=== PATIENT | male | born 1950 | race Hispanic/Latino ===

== ENCOUNTER → 2017-08-08 | Outpatient (CLI) | payer MEDICARE ==
[~2017-08-08] MED LIST: CARVEDILOL25 MG PO; FINASTERIDE5 MG PO; GLIPIZIDE ER2.5 MG PO; JANUVIA100 MG PO; LOSARTAN POTASS25 MG PO; METFORMIN HCL500 MG PO; SIMVASTATIN40 MG PO
--- NOTE | 2017-08-08 11:37 | Diagnostic Imaging Report ---
PROCEDURE:CT CHEST WITHOUT CONTRAST COMPARISON:X-ray 07/10/17. INDICATIONS:ABNORMAL CHEST X-RAY TECHNIQUE: Axial CT images of the chest were obtained without intravenous contrast. Coronal and sagittal reformations were made available for review. RADIATION DOSE: Total DLP: 472.1 mGy*cm Estimated effective dose: (DLP x 0.014 x size factor) mSv FINDINGS: Lungs: Right lung: Diffusely hyperinflated with mild apical pleural-parenchymal thickening. There is mild bronchial wall thickening in the lower lobe. No osei consolidation. Mild dependent groundglass attenuation suggestive of microatelectasis or resolving infiltrate. The nodule in the midlung field on x-ray is visible on banking representative image but has no correlate on cross-sectional images. The pulmonary arteries are mildly prominent, particularly in the lower lobe. Left lung: Diffusely hyperinflated with mild apical pleural-parenchymal thickening. There is diffuse bronchial wall thickening in the lingula and lower lobe with patchy groundglass airspace opacities suggestive of subsegmental atelectasis or potential infiltrate. The lobar pulmonary arteries are mildly prominent. No mass. Airways: There is moderate tracheobronchomalacia. No intraluminal mass or mucus. Pleura:No pleural effusion or pleural-based mass. There is a small fat-containing right Bochdalek hernia. Heart \T\ Mediastinum:The heart is enlarged with coronary artery calcifications. A stent is located in the LAD coronary artery. Pacemaker battery pack is located in the left chest wall. Leads terminate in the right atrium and right ventricle. No pericardial effusion. The ascending aorta measures 4.0 x 4.0 cm. The descending aorta measures 2.6 x 2.7 cm. The main pulmonary artery measures 3.0 cm. The esophagus is normal. Lymph nodes: No enlarged axillary, supraclavicular, mediastinal, or hilar lymph nodes. Thyroid/base of neck: No evidence of mass in the visualized portions. Upper abdomen:There is diffuse fatty atrophy of the pancreas. The visualized portions of the liver, spleen, gallbladder, adrenal glands, and kidneys are unremarkable. Musculoskeletal: There is a bone island in the body of T3. Minimal endplate degenerative changes are present consistent with age. No destructive lesions. Soft tissues: Mild right gynecomastia. CONCLUSION: 1. Pulmonary hyperinflation consistent with COPD. Moderate tracheobronchomalacia. 2. Bibasilar bronchial wall thickening suggestive of bronchitis. This may be acute or chronic. Patchy airspace opacities in the lower lobes are suggestive of atelectasis or resolving infiltrate. 3. The nodule in the left midlung field on x-ray has no CT correlate and is likely a vessel on end. 4. Cardiomegaly and aortic ectasia. Mildly enlarged pulmonary arteries suggestive of pulmonary artery hypertension. Dictated by: Misael Cobb M.D. on 08/08/2017 at 11:45 Electronically approved by: Misael Cobb M.D. on 08/08/2017 at 11:45
== END ==
LOC: CT 09:33
PROVIDERS: ATTEND Family Medicine
DX: R91.8 Other nonspecific abnormal finding of lung field (principal)
CPT/HCPCS: 71250

== ENCOUNTER → 2018-07-30 | Outpatient (CLI) | payer MEDICARE ==
[~2018-07-30] MED LIST changes: +CRESTOR20 MG PO; +FUROSEMIDE40 MG PO
--- OUTSIDE RECORDS SUMMARY | 2018-07-30 08:14 | XMS REPORT ---
Author Author [facility] Address Unknown Phone Unavailable Care Team Providers Care Ocean Biologist Name Role Phone JONNA RAE Unavailable Unavailable Problems This patient has no known problems. Allergies, Adverse Reactions, Alerts This patient has no known allergies or adverse reactions. Medications This patient has no known medications. Results Test Description Test Time Test Comments Text Results Atomic Results Result Comments CT CHEST WO [place] [address] Patient Name: ERICA MATA MR #: [id number] : 1950 Age/Sex: 67/M Req #: [id number] Adm Physician: Ordered by: KYRA CARLSON, JONNA Beckford MD Report #: [id number] Location: CT Room/Bed: Procedure: [id number] CT/CT CHEST WO Exam Date: 08/08/17 Exam Time: 1005 REPORT STATUS: Signed PROCEDURE: CT CHEST WITHOUT CONTRAST COMPARISON: X-ray 07/10/17. INDICATIONS: ABNORMAL CHEST X-RAY TECHNIQUE: Axial CT images of the chest were obtained without intravenous contrast. Coronal and sagittal reformations were made available for review. RADIATION DOSE: Total DLP: 472.1 mGy*cm Estimated effective dose: (DLP x 0.014 x size factor) mSv FINDINGS: Lungs: Right lung: Diffusely hyperinflated with mild apical pleural-parenchymal thickening. There is mild bronchial wall thickening in the lower lobe. No osei consolidation. Mild dependent groundglass attenuation suggestive of microatelectasis or resolving infiltrate. The nodule in the midlung field on x-ray is visible on latex spooler image but has no correlate on cross-sectional images. The pulmonary arteries are mildly pro minent, particularly in the lower lobe. Left lung: Diffusely hyperinflated with mild apical pleural-parenchymal thickening. There is diffuse bronchial wall thickening in the lingula and lower lobe with patchy groundglass airspace opacities suggestive of subsegmental atelectasis or potential infiltrate. The lobar pulmonary arteries are mildly prominent. No mass. Airways: There is moderate tracheobronchomalacia. No intraluminal mass or mucus. Pleura: No pleural effusion or pleural-based mass. There is a small fat-containing right Bochdalek hernia. Heart T Mediastinum: The heart is enlarged with coronary artery calcifications. A stent is located in the LAD coronary artery. Pacemaker battery pack is located in the left chest wall. Leads terminate in the right atrium and right ventricle. No pericardial effusion. The ascending aorta measures 4.0 x 4.0 cm. The descending aorta measures 2.6 x 2.7 cm. The main pulmonary artery measures 3. 0 cm. The esophagus is normal. Lymph nodes: No enlarged axillary, supraclavicular, mediastinal, or hilar lymph nodes. Thyroid/base of neck: No evidence of mass in the visualized portions. Upper abdomen: There is diffuse fatty atrophy of the pancreas. The visualized portions of the liver, spleen, gallbladder, adrenal glands, and kidneys are unremarkable. Musculoskeletal: There is a bone island in the body of T3. Minimal endplate degenerative changes are present consistent with age. No destructive lesions. Soft tissues: Mild right gynecomastia. CONCLUSION: 1. Pulmonary hyperinflation consistent with COPD. Moderate tracheobronchomalacia. 2. Bibasilar bronchial wall thickening suggestive of bronchitis. This may be acute or chronic. Patchy airspace opacities in the lower lobes are suggestive of atelectasis or resolving infiltrate. 3. The nodule in the left midlung field on x-ray has no CT correlate and is likely a vessel on end. 4. Cardiomegaly and aortic ectasia. Mildly enlarged pulmonary arteries suggestive of pulmonary artery hypertension. Dictated by: Jarrod Cobb M.D. on 08/08/2017 at 11:45 Electronically approved by: Jarrod Cobb M.D. on 08/08/2017 at 11:45 Dictated By: JARROD COBB MD [id number] Transcribed By: SOLA on 08/08/17 1145 COPY TO: JONNA RAE CHEST 2 VIEWS [place] [address] Patient Name: ERICA MATA MR #: [id number] : 1950 Age/Sex: 67/M Req #: [id number] Adm Physician: Ordered by: JONNA RAE MD, MD Report #: [id number] Location: [facility] Room/Bed: Procedure: [id number] DX/CHEST 2 VIEWS Exam Date: 07/10/17 Exam Time: 1420 REPORT STATUS: Signed PROCEDURE: Frontal and lateral views of the chest. COMPARISON: [facility], DX, CHEST 2 VIEWS, 10/31/2016, 15:13. INDICATIONS: CHRONIC COUGH FINDINGS: Lines/tubes: Stable left upper chest 2 lead cardiac device. Lungs: Lungs are well-inflated. No consolidation or pulmonary edema. Mild bronchial wall thickening and ill- defined patchy opacity in the right lower lung. Stable 2-3 mm nodular density projecting between the posterior aspect of the right sixth and seventh ribs. Pleura: There is no pleural effusion or pneumothorax. Heart and mediastinum: Cardiac silhouette is unremarkable. Pulmonary vasculature is normal. Bones: No acute bony abnormality. IMPRESSION: 1. ill-defined patchy opacity in the right lower lung. This may reflect atelectasis versus pneumonia, in the appropriate clinical setting. Recommend contrast enhanced chest CT for further evaluation. Mandy Koo M.D. Dictated by: Mandy Koo M.D. on 07/10/2017 at 15:04 Electronically approved by: Mandy Koo M.D. on 07/10/2017 at 15:04 Dictated By: MANDY KOO MD [id number] Transcribed By: SOLA on 07/10/17 1502 COPY TO: JONNA RAE
[2018-07-30 09:25] LABS: BASOPHILS # (AUTO) 0.1 (0.0-0.1); BASOPHILS % 0.8 % (0.0-1.0); EOSINOPHILS # (AUTO) 0.2 (0.0-0.4); EOSINOPHILS % 2.7 % (0.0-6.0); HEMATOCRIT 38.1 % (38.2-49.6); LYMPHOCYTES # (AUTO) 1.8 (1.0-3.2); MEAN CORPUSCULAR HEMOGLOBIN 27.9 pg (28-32); MEAN CORPUSCULAR HGB CONC 31.5 g/dL (31-35); MEAN CORPUSCULAR VOLUME 88.6 fL (81-99); MONOCYTES # (AUTO) 0.5 (0.2-0.8); MONOCYTES % 8.3 % (4.4-11.3); NEUTROPHILS # (AUTO) 3.8 (2.1-6.9); NEUTROPHILS % 59.9 % (38.7-80.0); PLATELET COUNT 242 x10e3/uL (140-360); RED CELL DISTRIBUTION WIDTH 13.8 % (11.7-14.4)
[2018-07-30 09:59] LABS: CALCIUM 9.6 mg/dL (8.4-10.2); CREATININE, SERUM 1.56 mg/dL (0.72-1.25)
== END | disposition home or self-care (01) ==
LOC: RAD 08:13 → OR 08:13 → EDSTATUS 10:30
PROVIDERS: ATTEND Internal Medicine Gastroenterology
DX: Z12.11 Encounter for screening for malignant neoplasm of colon (principal); Z53.09 Procedure and treatment not carried out because of other contraindication
CPT/HCPCS: 36415; 80048; 82948; 85025; 93005

== ENCOUNTER → 2020-04-25 | Day surgery (SDC) | payer MEDICARE, OTHER ==
[2020-04-21 13:18] LABS: BASOPHILS # (AUTO) 0.1 (0.0-0.1); BASOPHILS % 1.6 % (0.0-1.0); EOSINOPHILS # (AUTO) 0.4 (0.0-0.4); HEMATOCRIT 28.1 % (38.2-49.6); HEMOGLOBIN 8.3 g/dL (14.0-18.0); LYMPHOCYTES # (AUTO) 0.4 (1.0-3.2); LYMPHOCYTES % 8.6 % (18.0-39.1); MEAN CORPUSCULAR HEMOGLOBIN 25.6 pg (28-32); MEAN CORPUSCULAR HGB CONC 29.5 g/dL (31-35); MEAN CORPUSCULAR VOLUME 86.7 fL (81-99); MONOCYTES # (AUTO) 0.4 (0.2-0.8); MONOCYTES % 8.1 % (4.4-11.3); NEUTROPHILS # (AUTO) 3.1 (2.1-6.9); NEUTROPHILS % 71.5 % (38.7-80.0); PLATELET COUNT 222 x10e3/uL (140-360); RED BLOOD COUNT 3.24 x10e6/uL (4.3-5.7); RED CELL DISTRIBUTION WIDTH 17.9 % (11.7-14.4)
[2020-04-21 13:36] LABS: ALBUMIN 3.7 g/dL (3.5-5.0); ALBUMIN/GLOBULIN RATIO 1.2 (0.8-2.0); ANION GAP 19.4 mmol/L (8-16); CREATININE, SERUM 1.31 mg/dL (0.72-1.25); POTASSIUM 3.4 mmol/L (3.5-5.1)
[2020-04-25] VITALS (12 sets, daily range): BP systolic 112–144; BP diastolic 63–81
[~2020-04-25] VITALS: Ht 167.6 cm; Wt 59.0 kg
[~2020-04-25] MED LIST changes: +ADVAIR 250-501 EACH INH; +ALPRAZOLAM 0.5 MG TAB ONE; +ASPIRIN 325 MG TAB ONE; +ASPIRIN EC81 MG PO; +BIVALRIUDIN 250 MG/VIAL VIAL IV ONE; +DIPHENHYDRAMINE HCL 25 MG CAP ONE; +ENTRESTO 24 MG1 EACH PO; +FENTANYL CITRATE/PF 100MCG/2 ML INJ ONE; +FLOMAX0.4 MG PO; +FLUCONAZOLE100 MG PO; +GLIPIZIDE5 MG PO; +HEPARIN SOD/SOD CHLORIDE 2,000 ML ONE; +IOPAMIDOL 300MG/ML 100 ML INFUS..BTL IV ONE; +IOPAMIDOL 370 MG/ML 200 ML INFUS..BTL INJ ONE; +LIDOCAINE HCL 2% LOCAL 20 ML VIAL ONE; +LIPITOR20 MG PO; +MIDAZOLAM HCL 2 MG/2 ML VIAL ONE; +PRASUGREL 10 MG TAB ONE; +SODIUM CHLORIDE 0.9% 1000ML 1,000 ML ONE; +SODIUM CHLORIDE 0.9% 50ML 50 ML ONE; +TRADJENTA5 MG PO; +VICTOZA 2-0.6 MG/0.1 SC
--- NOTE | 2020-04-25 11:44 | NUR ---
1144 am RECEIVING NOTE [facility]............................................................... Bedside report received from Shadi GARCIA. Identifierx2. Alert oriented and appropriate, PERRLA, respirations even and unlabored to room air. Pulses x4 extremities equal and strong. Pedal pulses PT/DP X4 Doppler only and marked. Cap fill brisk < 3 sec. Rt groin Perclose site dry and intact. Skin warm and dry integrity appears D/I. IV 20g to left wrist at 100cchr, presents healthy w/o s/s of infiltration or complaint. Abdomen soft and supple. pt offered toileting, denies need to urinate or defecate. No personal affects with patient. Family called to talk to MD. Currently w/o complaint of pain or need. ds/de
--- NOTE | 2020-04-25 12:17 | Operative Report ---
DATE OF PROCEDURE: 04/25/2020 SURGEON: Ben Negron MD INDICATIONS: 1. Coronary artery disease, angina, abnormal stress test. 2. Congestive heart failure, chronic, systolic. 3. Peripheral arterial disease with atherosclerosis and claudication of left lower extremity with ulceration of the toes. COMPLICATIONS: None. BLOOD LOSS: Minimal. RECOMMENDATIONS: 1. Staged intervention left main and left anterior descending artery, coronary arteries. 2. Staged intervention left femoral and inferior popliteal artery. PROCEDURES PERFORMED: 1. Left heart catheterization, selective coronary angiography. 2. Stent placement to the right coronary artery. 3. Abdominal aortogram. 4. Third-order catheter placement from right femoral artery to left superficial femoral artery, unilateral extremity angiogram. 5. Deployment of right groin Perclose closure device. DESCRIPTION OF PROCEDURE: Access was obtained in the right femoral artery using ultrasound guidance. A 6-Djiboutian sheath was placed. Coronary angiography demonstrated 70% to 80% ostial left main stenosis, patent stent in the proximal left anterior descending artery, distally the stent 80% stenosis 2.5 mm vessel. Circumflex had mild disease. Right coronary artery, mid 90%. Right posterior descending artery was chronically occluded. LV end-diastolic pressure of 25. No gradient across the aortic valve on pullback. Abdominal aortogram demonstrated 50% stenosis of the right common iliac artery. Left femoral artery, 50% stenosis. Sheath was advanced in the right femoral artery to left superficial femoral artery. Complete occlusion of the left anterior tibial artery was noted without reconstitution. Ostial, peroneal and posterior tibial arteries had focal 90% stenosis. A decision was made to intervene on the right coronary artery. The patient received intravenous Angiomax and oral prasugrel and aspirin for anticoagulation. 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 It was cannulated using an AL0.75 6-Djiboutian guiding catheter with side holes. Short Runthrough wire was advanced for support. Primary stent 2.5 x 24 mm Synergy. Stent was deployed at 14 atmospheres. Excellent end result. Less than 10% residual stenosis. ROMI-3 flow. No complications. Wire and guide sheath removed. Right groin repaired using Perclose closure device. The patient discharged home the same day. Ben Negron MD [facility]SMagda/MODL /[id number]
--- NOTE | 2020-04-25 16:00 | NUR ---
1600 Nursing dc note: Pt meets DC criteria. Right groin assessed for s/s of complication and presence of hematoma. Skin warm, dry, no discolor, and pulses present. IV removed from left wrist Distal tip appears intact. VS WNL. Pt denies pain, sob, or need at this time.Anguiano leg bag emped 400cc urine. Review of discharge paperwork and follow up noted and understood by daughter and patient.Assist pt to car by wheelchair with daughter escort and helped pt to private vehicle w/o assist device. Denies discomfort and will f/o with MD as requested in two weeks and will f/o PCP for states other needs. Back to baseline orientation though remains somewhat weak. Tolerating po intake. Aware how to access EMS if necessary. Has copies of stent card,diagram prescription in daughter hands .ds/rn
== END | disposition home or self-care (01) ==
LOC: CATH LAB 07:26
PROVIDERS: ATTEND Internal Medicine Interventional Cardiology
DX: I25.118 Atherosclerotic heart disease of native coronary artery with other forms of angina pectoris (principal); R94.39 Abnormal result of other cardiovascular function study; I50.22 Chronic systolic (congestive) heart failure; I70.245 Atherosclerosis of native arteries of left leg with ulceration of other part of foot; E11.59 Type 2 diabetes mellitus with other circulatory complications; Z01.812 Encounter for preprocedural laboratory examination; Z11.59 Encounter for screening for other viral diseases; Z79.82 Long term (current) use of aspirin; Z79.84 Long term (current) use of oral hypoglycemic drugs; Z95.810 Presence of automatic (implantable) cardiac defibrillator; Z86.73 Personal history of transient ischemic attack (TIA), and cerebral infarction without residual deficits
CPT/HCPCS: 36247; 93458; C9600; 36415; 75625; 75710; 80053; 82948; 85025; 92928; 99152; 99153; C1760; C1769; C1874; J0583; J2001; J2250; J3010; J7030; Q9967; U0002

== ENCOUNTER 2020-05-04 14:19 | Outpatient (RCR) | payer MEDICARE, OTHER ==
[~2020-05-04 14:19] MED LIST changes: -ALPRAZOLAM 0.5 MG TAB ONE; -ASPIRIN 325 MG TAB ONE; -BIVALRIUDIN 250 MG/VIAL VIAL IV ONE; -DIPHENHYDRAMINE HCL 25 MG CAP ONE; -FENTANYL CITRATE/PF 100MCG/2 ML INJ ONE; -HEPARIN SOD/SOD CHLORIDE 2,000 ML ONE; -IOPAMIDOL 300MG/ML 100 ML INFUS..BTL IV ONE; -IOPAMIDOL 370 MG/ML 200 ML INFUS..BTL INJ ONE; -LIDOCAINE HCL 2% LOCAL 20 ML VIAL ONE; +LIDOCAINE VISC 2% SOLN 15 ML UDC ONE; -MIDAZOLAM HCL 2 MG/2 ML VIAL ONE; -PRASUGREL 10 MG TAB ONE; -SODIUM CHLORIDE 0.9% 1000ML 1,000 ML ONE; -SODIUM CHLORIDE 0.9% 50ML 50 ML ONE
[2020-06-02] MEDS ORDERED: CARVEDILOL12.5 MG PO (16:49)
[2020-06-02] MEDS ORDERED: CLOPIDOGREL75 MG PO (16:51)
[2020-06-02] MEDS ORDERED: JARDIANCE25 MG PO (16:52)
== END 2020-05-10 ==
LOC: WCC 14:19
PROVIDERS: ATTEND Family Medicine Adult Medicine
DX: E11.628 Type 2 diabetes mellitus with other skin complications (principal); I87.312 Chronic venous hypertension (idiopathic) with ulcer of left lower extremity; I87.311 Chronic venous hypertension (idiopathic) with ulcer of right lower extremity; L97.821 Non-pressure chronic ulcer of other part of left lower leg limited to breakdown of skin; L97.811 Non-pressure chronic ulcer of other part of right lower leg limited to breakdown of skin; R60.0 Localized edema; I87.2 Venous insufficiency (chronic) (peripheral); I79.8 Other disorders of arteries, arterioles and capillaries in diseases classified elsewhere; I10 Essential (primary) hypertension; J44.9 Chronic obstructive pulmonary disease, unspecified
CPT/HCPCS: 36415; 82948

== ENCOUNTER → 2020-06-05 | Day surgery (SDC) | payer MEDICARE, OTHER ==
[2020-05-11 15:10] LABS: BASOPHILS # (AUTO) 0.1 (0.0-0.1); BASOPHILS % 1.4 % (0.0-1.0); EOSINOPHILS # (AUTO) 0.6 (0.0-0.4); EOSINOPHILS % 10.6 % (0.0-6.0); HEMATOCRIT 31.3 % (38.2-49.6); HEMOGLOBIN 9.3 g/dL (14.0-18.0); LYMPHOCYTES # (AUTO) 0.8 (1.0-3.2); LYMPHOCYTES % 15.8 % (18.0-39.1); MEAN CORPUSCULAR HGB CONC 29.7 g/dL (31-35); MEAN CORPUSCULAR VOLUME 87.4 fL (81-99); MONOCYTES # (AUTO) 0.4 (0.2-0.8); MONOCYTES % 8.3 % (4.4-11.3); NEUTROPHILS # (AUTO) 3.3 (2.1-6.9); NEUTROPHILS % 63.7 % (38.7-80.0); PLATELET COUNT 243 x10e3/uL (140-360); RED BLOOD COUNT 3.58 x10e6/uL (4.3-5.7); RED CELL DISTRIBUTION WIDTH 21.1 % (11.7-14.4)
[2020-05-11 15:29] LABS: ALBUMIN 3.9 g/dL (3.5-5.0); ALBUMIN/GLOBULIN RATIO 1.3 (0.8-2.0); ANION GAP 15.3 mmol/L (8-16); CALCIUM 8.9 mg/dL (8.4-10.2); CREATININE, SERUM 1.33 mg/dL (0.72-1.25); POTASSIUM 4.3 mmol/L (3.5-5.1)
--- NOTE | 2020-05-15 12:00 | NUR ---
Attempted to use [employer] interpreter Bulmaro ID [id number] for phone interview with patient. No answer and left message.
[2020-06-01 16:09] LABS: BASOPHILS # (AUTO) 0.1 (0.0-0.1); BASOPHILS % 1.1 % (0.0-1.0); EOSINOPHILS # (AUTO) 0.4 (0.0-0.4); EOSINOPHILS % 9.7 % (0.0-6.0); HEMATOCRIT 32.9 % (38.2-49.6); HEMOGLOBIN 9.7 g/dL (14.0-18.0); LYMPHOCYTES # (AUTO) 0.9 (1.0-3.2); LYMPHOCYTES % 20.7 % (18.0-39.1); MEAN CORPUSCULAR HEMOGLOBIN 26.4 pg (28-32); MEAN CORPUSCULAR HGB CONC 29.5 g/dL (31-35); MEAN CORPUSCULAR VOLUME 89.6 fL (81-99); MONOCYTES # (AUTO) 0.4 (0.2-0.8); MONOCYTES % 9.7 % (4.4-11.3); NEUTROPHILS # (AUTO) 2.6 (2.1-6.9); NEUTROPHILS % 58.6 % (38.7-80.0); PLATELET COUNT 258 x10e3/uL (140-360); RED BLOOD COUNT 3.67 x10e6/uL (4.3-5.7); RED CELL DISTRIBUTION WIDTH 19.7 % (11.7-14.4)
[2020-06-01 16:26] LABS: ALBUMIN 3.7 g/dL (3.5-5.0); ANION GAP 14.6 mmol/L (8-16); CALCIUM 9.1 mg/dL (8.4-10.2); CREATININE, SERUM 1.54 mg/dL (0.72-1.25); POTASSIUM 4.6 mmol/L (3.5-5.1)
[2020-06-05] VITALS (9 sets, daily range): BP systolic 105–128; BP diastolic 65–88
[~2020-06-05] VITALS: Ht 167.6 cm; Wt 59.0 kg
[~2020-06-05] MED LIST changes: +ALPRAZOLAM 0.5 MG TAB ONE; +ASPIRIN 325 MG TAB ONE; +CARVEDILOL12.5 MG PO; +CLOPIDOGREL75 MG PO; +DIPHENHYDRAMINE HCL 25 MG CAP ONE; +FENTANYL CITRATE/PF 100MCG/2 ML INJ ONE; +HEPARIN SOD/SOD CHLORIDE 2,000 ML ONE; +IOPAMIDOL 300MG/ML 100 ML INFUS..BTL IV ONE; +JARDIANCE25 MG PO; +LIDOCAINE HCL 2% LOCAL 20 ML VIAL ONE; -LIDOCAINE VISC 2% SOLN 15 ML UDC ONE; +MIDAZOLAM HCL 2 MG/2 ML VIAL ONE; +PRASUGREL 10 MG TAB ONE; +SODIUM CHLORIDE 0.9% 1000ML 1,000 ML ONE; +SODIUM CHLORIDE 0.9% 50ML 50 ML ONE
--- NOTE | 2020-06-05 11:00 | NUR ---
pt in acu 9 , prepped for procedure. Alert oriented and appropriate, PERRLA, respirations even and unlabored to room air. Pulses x4 extremities equal and Doppler. lower extremities wrapped by home wound care and warm. Cap fill sluggish > 3 sec. indwelling dominguez found on arrival to leg bag. Skin warm and dry integrity appears intact in general. IV 20g x2 attempt right arm and presents healthy w/o s/s of infiltration or complaint. Abdomen soft and supple. pt offered toileting, denies need to defecate. Personal affects with patient. Family at bedside . Pt verbalizes understanding of POC, daughter requested by patient to interpret. Educated installation superintendent light use. bed low and locked, side rails up x2 and call light at side. Awaiting for physician arrival/procedure time. pt using provided/ personal mask for COVID-19 mitigation. benadryl 50mg and xanax 0.5mg given PO w/o duress -cgf
--- NOTE | 2020-06-05 14:30 | Operative Report ---
DATE OF PROCEDURE: 06/05/2020 SURGEON: Ben Negron MD INDICATIONS: Peripheral arterial disease and claudication. PROCEDURES PERFORMED: 1. Antegrade 6-Greenlandic sheath placement from the right lead from the left common femoral artery to the left tibial artery (third-order catheter placement). 2. Unilateral extremity angiogram. 3. Conscious sedation administration, hemodynamic and neurological monitoring and recovery by sleep lab technician RN, supervision by MD, 65 minutes. 4. Stent placement to the left anterior tibial artery. 5. Stent placement to the left peroneal artery. COMPLICATIONS: None. RECOMMENDATIONS: Dual antiplatelet therapy for life. DESCRIPTION OF PROCEDURE: Access was obtained in the left femoral artery using antegrade approach. A 6-Greenlandic sheath was placed and advanced to left tibial artery (third-order catheter placement). The patient received 6000 units of intravenous heparin for anticoagulation. Complete occlusion of the left anterior tibial artery, 50% stenosis of the distal left femoral artery. Posterior tibial as well as peroneal arteries had 90% stenosis. Two wires were advanced across the peroneal and the posterior tibial artery, and balloon dilatation with 3 mm balloon of the anterior tibial artery. Two stents were placed in Y fashion. Posterior tibial artery 3.0 x 32 mm. Peroneal artery, 3.0 x 12 mm. Excellent end result, 0% residual stenosis. Two-vessel runoff to the left foot. No complications were encountered. The patient received intravenous protamine for heparin reversal of effect and sheath removed under manual pressure. The patient discharged home the same day. Ben Negron MD KSB/MODL /[id number]
--- NOTE | 2020-06-05 14:50 | NUR ---
bedside report received from Lanette Hoang RN. Alert oriented and appropriate, PERRLA, respirations even and unlabored to room air. Pulses x4 extremities equal and doppler. Left groin dressing CDI w/o gross abnormalities when compared to right. Skin warm and dry integrity appears intact. IV 20g to right forearm presents healthy w/o s/s of infiltration or complaint. Abdomen soft and supple. pt offered toileting, denies need to defecate. Personal affects with patient. Family available to translate per pt preference. Pt understanding of POC. Bedside telemetry initiated. Currently w/o complaint of pain or need. Call light within reach, bed low and locked, side rails up x2. pt using provided/ personal mask for COVID-19 mitigation. -cgf
--- NOTE | 2020-06-05 19:00 | NUR ---
Left femoral dressing CDI, unremarkable in comparison to right side.Pt meets discharge criteria. VS wnl, alert and oriented. Pt and Family Understands discharge instruction. Overall general assess w/o gross outliers. Skin warm, dry, and intact. Left groin dressing soft w/o s/s of hematoma. Pedal pulses unchanged. IV removed and appears distal tip is intact. Pt maintains mask on for COVID 19 precautions being taken by wheel chair to awaiting car. Transfers w/o gross distress with discharge paperwork in hand.
== END | disposition home or self-care (01) ==
LOC: CATH LAB 10:28
PROVIDERS: ATTEND Internal Medicine Interventional Cardiology
DX: I70.212 Atherosclerosis of native arteries of extremities with intermittent claudication, left leg (principal); E11.9 Type 2 diabetes mellitus without complications; I10 Essential (primary) hypertension; Z01.812 Encounter for preprocedural laboratory examination; Z11.59 Encounter for screening for other viral diseases; Z79.84 Long term (current) use of oral hypoglycemic drugs; Z79.02 Long term (current) use of antithrombotics/antiplatelets; Z79.82 Long term (current) use of aspirin
CPT/HCPCS: 36415 ×2; 37230; 37234; 80053 ×2; 85025 ×2; C1725 ×2; C1766; C1769 ×2; C1874; J2001; J2250; J3010; J7030; Q9967; U0002 ×2; 99152; 99153

== ENCOUNTER 2020-06-08 12:15 | Outpatient (RCR) | payer MEDICARE ==
[~2020-06-08 12:15] MED LIST changes: -ALPRAZOLAM 0.5 MG TAB ONE; -ASPIRIN 325 MG TAB ONE; -DIPHENHYDRAMINE HCL 25 MG CAP ONE; -FENTANYL CITRATE/PF 100MCG/2 ML INJ ONE; -HEPARIN SOD/SOD CHLORIDE 2,000 ML ONE; -IOPAMIDOL 300MG/ML 100 ML INFUS..BTL IV ONE; -LIDOCAINE HCL 2% LOCAL 20 ML VIAL ONE; -MIDAZOLAM HCL 2 MG/2 ML VIAL ONE; -PRASUGREL 10 MG TAB ONE; -SODIUM CHLORIDE 0.9% 1000ML 1,000 ML ONE; -SODIUM CHLORIDE 0.9% 50ML 50 ML ONE
[2020-06-08] MEDS ORDERED: FLUOCINONIDE 0.05% 1 EA/15 GM TUBE ONE ×2 (13:18→16:32)
[2020-06-08] MEDS ORDERED: LIDOCAINE/PRILOCAINE 2.5-2.5% KIT ONE ×2 (13:18→16:32)
== END 2020-06-10 ==
LOC: WCC 12:15
PROVIDERS: ATTEND Family Medicine Adult Medicine
DX: E11.628 Type 2 diabetes mellitus with other skin complications (principal); L97.821 Non-pressure chronic ulcer of other part of left lower leg limited to breakdown of skin; I83.12 Varicose veins of left lower extremity with inflammation; R60.0 Localized edema; I79.8 Other disorders of arteries, arterioles and capillaries in diseases classified elsewhere; I10 Essential (primary) hypertension; J44.9 Chronic obstructive pulmonary disease, unspecified

== ENCOUNTER → 2020-06-22 | Outpatient (CLI) | payer MEDICARE | LOC: WCC 16:29 | PROVIDERS: ATTEND Family Medicine Adult Medicine | DX: E11.628 Type 2 diabetes mellitus with other skin complications (principal); L97.821 Non-pressure chronic ulcer of other part of left lower leg limited to breakdown of skin; S81.802A Unspecified open wound, left lower leg, initial encounter; S81.801A Unspecified open wound, right lower leg, initial encounter; I79.8 Other disorders of arteries, arterioles and capillaries in diseases classified elsewhere; I83.12 Varicose veins of left lower extremity with inflammation; R60.0 Localized edema; I10 Essential (primary) hypertension; J44.9 Chronic obstructive pulmonary disease, unspecified; W45.8XXA Other foreign body or object entering through skin, initial encounter | CPT/HCPCS: 36415; 82948 ==

== ENCOUNTER 2020-08-01 09:40 | Outpatient (RCR) | payer MEDICARE, OTHER ==
[~2020-08-01 09:40] MED LIST changes: +FLUOCINONIDE 0.05% 1 EA/15 GM TUBE ONE; +LIDOCAINE/PRILOCAINE 2.5-2.5% KIT ONE; +MINERAL OIL/PETROLAT/GLYCERI 6OZ BTL ONE
[2020-08-01] MEDS ORDERED: MINERAL OIL/PETROLAT/GLYCERI 2OZ CRM ONE (16:05)
[2020-08-01] MEDS ORDERED: LIDOCAINE VISC 2% SOLN 15 ML UDC ONE (16:05)
== END 2020-08-10 ==
LOC: WCC 09:40
PROVIDERS: ATTEND Family Medicine Adult Medicine
DX: E11.628 Type 2 diabetes mellitus with other skin complications (principal); I79.8 Other disorders of arteries, arterioles and capillaries in diseases classified elsewhere; S81.802A Unspecified open wound, left lower leg, initial encounter; S81.801A Unspecified open wound, right lower leg, initial encounter; I83.12 Varicose veins of left lower extremity with inflammation; R60.0 Localized edema; I10 Essential (primary) hypertension; J44.9 Chronic obstructive pulmonary disease, unspecified; W45.8XXA Other foreign body or object entering through skin, initial encounter
CPT/HCPCS: 36415; 82948

== ENCOUNTER → 2020-10-16 | Day surgery (SDC) | payer MEDICARE ==
[2020-10-12 09:19] LABS: BASOPHILS # (AUTO) 0.1 (0.0-0.1); BASOPHILS % 1.1 % (0.0-1.0); EOSINOPHILS # (AUTO) 0.6 (0.0-0.4); EOSINOPHILS % 9.4 % (0.0-6.0); HEMATOCRIT 33.5 % (38.2-49.6); HEMOGLOBIN 10.4 g/dL (14.0-18.0); LYMPHOCYTES # (AUTO) 0.8 (1.0-3.2); LYMPHOCYTES % 12.6 % (18.0-39.1); MEAN CORPUSCULAR HEMOGLOBIN 27.8 pg (28-32); MEAN CORPUSCULAR VOLUME 89.6 fL (81-99); MONOCYTES # (AUTO) 0.7 (0.2-0.8); MONOCYTES % 11.2 % (4.4-11.3); NEUTROPHILS # (AUTO) 4.2 (2.1-6.9); NEUTROPHILS % 65.2 % (38.7-80.0); PLATELET COUNT 243 x10e3/uL (140-360); RED BLOOD COUNT 3.74 x10e6/uL (4.3-5.7); RED CELL DISTRIBUTION WIDTH 16.8 % (11.7-14.4)
[2020-10-12 09:37] LABS: ANION GAP 18.2 mmol/L (8-16); CALCIUM 8.7 mg/dL (8.4-10.2); CREATININE, SERUM 2.48 mg/dL (0.72-1.25); POTASSIUM 5.2 mmol/L (3.5-5.1)
[~2020-10-16] MED LIST changes: +B&O 60MG R/S 60 MG SUPP PR ONE; +BUPIVACAINE HCL 0.5% INJ 30 ML VIAL INJ ONE; -FLUOCINONIDE 0.05% 1 EA/15 GM TUBE ONE; +IOPAMIDOL 300MG/ML 50ML INFUS..BTL IV ONE; +LIDOCAINE 2%/ EPINEPHRINE 20ML MDV ONE; +LIDOCAINE HCL 2% JELLY 5 ML TUBE ONE; +LIDOCAINE HCL 2% LOCAL INJ 5 ML SDV VIAL INJ ONE; -LIDOCAINE/PRILOCAINE 2.5-2.5% KIT ONE; -MINERAL OIL/PETROLAT/GLYCERI 6OZ BTL ONE; +PIPERACILLIN/TAZOBAC 3.375 GM VIAL ONE; +PROPOFOL IV EMULSION 10 MG/ML 20 ML VIAL ONE; +SEVOFLURANE INHAL SOLN 250 ML PEN BTL ONE; +SODIUM CHLORIDE 0.9% 50ML 50 ML ONE
[2020-10-16 07:08] LABS: ANION GAP 15.1 mmol/L (8-16); CALCIUM 8.7 mg/dL (8.4-10.2); CREATININE, SERUM 2.02 mg/dL (0.72-1.25); POTASSIUM 5.1 mmol/L (3.5-5.1)
[2020-10-16 09:30] VITALS: BP 91/58
== END | disposition home or self-care (01) ==
LOC: OR 05:30
PROVIDERS: ATTEND Urology
DX: N39.0 Urinary tract infection, site not specified (principal); N31.2 Flaccid neuropathic bladder, not elsewhere classified; N13.30 Unspecified hydronephrosis; Q54.9 Hypospadias, unspecified; N40.1 Benign prostatic hyperplasia with lower urinary tract symptoms; N13.8 Other obstructive and reflux uropathy; R33.8 Other retention of urine; N32.89 Other specified disorders of bladder; S37.30XS Unspecified injury of urethra, sequela; I11.0 Hypertensive heart disease with heart failure; I50.9 Heart failure, unspecified; E11.9 Type 2 diabetes mellitus without complications; J44.9 Chronic obstructive pulmonary disease, unspecified; I25.10 Atherosclerotic heart disease of native coronary artery without angina pectoris; I25.2 Old myocardial infarction; E66.9 Obesity, unspecified; R26.81 Unsteadiness on feet; X58.XXXA Exposure to other specified factors, initial encounter; Z01.810 Encounter for preprocedural cardiovascular examination; Z01.812 Encounter for preprocedural laboratory examination; Z01.818 Encounter for other preprocedural examination; Z20.822 Contact with and (suspected) exposure to COVID-19; Z79.02 Long term (current) use of antithrombotics/antiplatelets; Z79.84 Long term (current) use of oral hypoglycemic drugs; Z79.82 Long term (current) use of aspirin; Z95.5 Presence of coronary angioplasty implant and graft; Z95.810 Presence of automatic (implantable) cardiac defibrillator; Z86.73 Personal history of transient ischemic attack (TIA), and cerebral infarction without residual deficits
CPT/HCPCS: 36415 ×2; 51040; 52005; 71046; 74420; 80048 ×2; 82948; 85025; 93005; C1758; J2001 ×3; J2543; J2704; Q9967; U0002

== ENCOUNTER → 2021-07-24 | Day surgery (SDC) | payer MEDICARE ==
[2021-07-20 10:57] LABS: BASOPHILS # (AUTO) 0.1 (0.0-0.1); BASOPHILS % 0.8 % (0.0-1.0); EOSINOPHILS # (AUTO) 0.5 (0.0-0.4); EOSINOPHILS % 8.5 % (0.0-6.0); HEMATOCRIT 36.7 % (38.2-49.6); HEMOGLOBIN 11.5 g/dL (14.0-18.0); LYMPHOCYTES # (AUTO) 0.8 (1.0-3.2); LYMPHOCYTES % 13.6 % (18.0-39.1); MEAN CORPUSCULAR HEMOGLOBIN 28.5 pg (28-32); MEAN CORPUSCULAR HGB CONC 31.3 g/dL (31-35); MEAN CORPUSCULAR VOLUME 90.8 fL (81-99); MONOCYTES # (AUTO) 0.5 (0.2-0.8); MONOCYTES % 7.5 % (4.4-11.3); NEUTROPHILS # (AUTO) 4.2 (2.1-6.9); NEUTROPHILS % 69.1 % (38.7-80.0); PLATELET COUNT 234 x10e3/uL (140-360); RED BLOOD COUNT 4.04 x10e6/uL (4.3-5.7); RED CELL DISTRIBUTION WIDTH 14.6 % (11.7-14.4)
[2021-07-20 11:17] LABS: ALBUMIN 3.8 g/dL (3.5-5.0); ALBUMIN/GLOBULIN RATIO 1.3 (0.8-2.0); ANION GAP 13.1 mmol/L (8-16); CALCIUM 8.8 mg/dL (8.4-10.2); CREATININE, SERUM 1.32 mg/dL (0.72-1.25); POTASSIUM 4.1 mmol/L (3.5-5.1)
[~2021-07-24] VITALS: Ht 167.6 cm; Wt 55.8 kg
[2021-07-24] VITALS (7 sets, daily range): BP systolic 114–161; BP diastolic 69–91
[~2021-07-24] MED LIST changes: -B&O 60MG R/S 60 MG SUPP PR ONE; -BUPIVACAINE HCL 0.5% INJ 30 ML VIAL INJ ONE; +FENTANYL CITRATE/PF 100MCG/2 ML INJ ONE; +HEPARIN SOD/SOD CHLORIDE 2,000 ML ONE; -IOPAMIDOL 300MG/ML 50ML INFUS..BTL IV ONE; +IOPAMIDOL 370 MG/ML 200 ML INFUS..BTL INJ ONE; -LIDOCAINE 2%/ EPINEPHRINE 20ML MDV ONE; -LIDOCAINE HCL 2% JELLY 5 ML TUBE ONE; +LIDOCAINE HCL 2% LOCAL 20 ML VIAL ONE; -LIDOCAINE HCL 2% LOCAL INJ 5 ML SDV VIAL INJ ONE; +MIDAZOLAM HCL 2 MG/2 ML VIAL ONE; +OXYBUTYNIN CHLOR5 MG PO; -PIPERACILLIN/TAZOBAC 3.375 GM VIAL ONE; -PROPOFOL IV EMULSION 10 MG/ML 20 ML VIAL ONE; -SEVOFLURANE INHAL SOLN 250 ML PEN BTL ONE; +SODIUM CHLORIDE 0.9% 1000ML 1,000 ML ONE; -SODIUM CHLORIDE 0.9% 50ML 50 ML ONE
== END | disposition home or self-care (01) ==
LOC: CATH LAB 13:30
PROVIDERS: ATTEND Internal Medicine Interventional Cardiology
DX: I25.10 Atherosclerotic heart disease of native coronary artery without angina pectoris (principal); T82.855A Stenosis of coronary artery stent, initial encounter; I10 Essential (primary) hypertension; E78.00 Pure hypercholesterolemia, unspecified; I48.91 Unspecified atrial fibrillation; E11.9 Type 2 diabetes mellitus without complications; J44.9 Chronic obstructive pulmonary disease, unspecified; Z83.3 Family history of diabetes mellitus; Z01.812 Encounter for preprocedural laboratory examination; Z20.822 Contact with and (suspected) exposure to COVID-19; Z79.82 Long term (current) use of aspirin; Z79.84 Long term (current) use of oral hypoglycemic drugs
CPT/HCPCS: 36415 ×2; 80053; 82948; 83880; 85025; 93454; C1887; C1894; J2001; J2250; J3010; J7030; Q9967; U0002; 99152